=== PATIENT | male | born 1995 | race Caucasian/White ===

== ENCOUNTER 2017-04-23 13:41 | Emergency (ER) | payer MEDICAID ==
[~2017-04-23] VITALS: Ht 188 cm; Wt 81.6 kg
--- NOTE | 2017-04-23 14:58 | NUR ---
Patient discharged to home in stable conditon. Written and verbal after care instructions given with RX. Patient verbalizes understanding of instructions.
[2017-04-23] MEDS ORDERED: IBUPROFEN 800 MG TABLET PO ONE (15:00)
== END 2017-04-23 14:59 | disposition home or self-care (01) ==
LOC: ER 13:44
DX: S60.221A Contusion of right hand, initial encounter (principal); W22.03XA Walked into furniture, initial encounter; Y93.89 Activity, other specified; Y92.89 Other specified places as the place of occurrence of the external cause; Y99.8 Other external cause status
CPT/HCPCS: 73120; 99284; A4663